=== PATIENT | male | born 1960 | race Native Hawaiian/Other Pacific Islander ===

== ENCOUNTER → 2019-10-04 15:25 | Outpatient (CLI) | payer OTHER, SELFPAY ==
[2019-10-04 17:09] LABS: Prostate Specific Antigen Scrn 1.78 ng/mL (0.1-4.0)
== END ==
PROVIDERS: Family Provider Internal Medicine; PCP Student in an Organized Health Care Education/Training Program; Referring Provider Student in an Organized Health Care Education/Training Program; Visit Provider Student in an Organized Health Care Education/Training Program
DX: Z12.5 Encounter for screening for malignant neoplasm of prostate (principal)
CPT/HCPCS: 36415; G0103

== ENCOUNTER → 2022-01-08 15:14 | Outpatient (CLI) | payer OTHER, SELFPAY ==
[2022-01-08 16:12] LABS: Appearance Urine UA CLEAR; Bilirubin Urine UA NEGATIVE (NEGATIVE); Color Urine UA YELLOW; Glucose Urine UA NEGATIVE (Negative); Ketones Urine UA NEGATIVE (NEGATIVE); Leukocyte Esterase Urine UA NEGATIVE (NEGATIVE); Nitrite Urine UA NEGATIVE (Negative); Occult Blood Urine UA 2+ (Negative); Protein Urine UA NEGATIVE (Negative); Urobilinogen Urine UA 0.2 E.U./dL (0.2)
[2022-01-08 16:21] LABS: Amorphous Sediment Urine 1+; Bacteria Urine None Seen; RBC Urine 1-5/HPF (0-5/HPF); WBC Urine None Seen (0-5/HPF)
[2022-01-08 16:22] LABS: Culture Indicated Urine Cult Not Indicated
[2022-01-08 17:03] LABS: Cholesterol 173 mg/dL (140-199); HDL Cholesterol 44 mg/dL (40-60); LDL Cholesterol Calculated 104 mg/dL (<100); Triglycerides 126 mg/dL (35-150)
[2022-01-08 17:25] LABS: Prostate Specific Antigen Scrn 1.88 ng/mL (0.1-4.0)
[2022-01-09 17:47] LABS: Hep C Virus Ab w/Reflex Quant NEGATIVE s/c (NEGATIVE)
== END ==
PROVIDERS: PCP Student in an Organized Health Care Education/Training Program; Referring Provider Student in an Organized Health Care Education/Training Program; Visit Provider Student in an Organized Health Care Education/Training Program
DX: E78.00 Pure hypercholesterolemia, unspecified (principal); Z12.5 Encounter for screening for malignant neoplasm of prostate; Z11.59 Encounter for screening for other viral diseases; R31.9 Hematuria, unspecified
CPT/HCPCS: 36415; 80061; 81001; 86803; G0103

== ENCOUNTER → 2022-02-26 09:42 | Outpatient (CLI) | payer OTHER, SELFPAY ==
[2022-02-26 10:50] LABS: BUN Creatinine Ratio 16.1 (6-22); Blood Urea Nitrogen 15 mg/dL (9-20); Calcium 8.9 mg/dL (8.4-10.2); Carbon Dioxide 30 mmol/L (22-32); Chloride 104 mmol/L (98-107); Estimated Glomerular Filt Rate > 60 mL/min (>60); Glucose 98 mg/dL (80-110); HEMOLYSIS < 15 (0-50); Sodium 141 mmol/L (137-145)
== END ==
PROVIDERS: PCP Student in an Organized Health Care Education/Training Program; Referring Provider Urology; Visit Provider Urology
DX: R31.21 Asymptomatic microscopic hematuria (principal)
CPT/HCPCS: 36415; 80048

== ENCOUNTER → 2022-05-16 09:05 | Outpatient (CLI) | payer OTHER, SELFPAY ==
--- NOTE | 2022-05-16 09:06 | DI.RAD.S_ITS ---
PROCEDURE: XR FOOT RT MIN 3V INDICATIONS: right ankle sprain TECHNIQUE: 3 views of the foot were acquired. COMPARISON: [facility], CR, XR ANKLE RT MIN 3V, 05/16/2022, 10:19. FINDINGS: Bones: No fractures or dislocations. No suspicious bony lesions. Mild degenerative joint disease in ankle and foot. Bipartite medial and lateral sesamoids. Soft tissues: No tibiotalar joint effusion. Achilles tendon appears normal. IMPRESSION: No acute osseous abnormalities. If clinical symptoms persist or clinical suspicion for pathology is high, a repeat examination in 7-10 days, or advanced imaging such as CT or MRI is suggested for further evaluation. Dictated by: Libia Chinchilla M.D. on 05/16/2022 at 9:46 Approved by: Libia Chinchilla M.D. on 05/16/2022 at 9:47
--- NOTE | 2022-05-16 09:06 | DI.RAD.S_ITS ---
PROCEDURE: XR TIBIA FUBULA RT 2V INDICATIONS: Right ankle sprain TECHNIQUE: 2 views of the tibia and fibula were acquired. COMPARISON: [facility], CR, XR FOOT RT MIN 3V, 05/16/2022, 10:20. [facility], CR, XR ANKLE RT MIN 3V, 05/16/2022, 10:19. FINDINGS: Bones: No fractures or dislocations. No suspicious bony lesions. Soft tissues: No suspicious soft tissue calcifications or masses. IMPRESSION: No acute osseous abnormalities. If clinical symptoms persist or clinical suspicion for pathology is high, a repeat examination in 7-10 days, or advanced imaging such as CT or MRI is suggested for further evaluation. Dictated by: Libia Chinchilla M.D. on 05/16/2022 at 9:44 Approved by: Libia Chinchilla M.D. on 05/16/2022 at 9:45
--- NOTE | 2022-05-16 09:06 | DI.RAD.S_ITS ---
PROCEDURE: XR ANKLE RT MIN 3V INDICATIONS: Right ankle sprain TECHNIQUE: 3 views of the ankle were acquired. COMPARISON: None. FINDINGS: Bones: No fractures or dislocations. Ankle mortise is normally aligned. No suspicious bony lesions. Mild degenerative joint disease. Calcaneal spurring. Soft tissues: Trace tibiotalar joint effusion. Achilles tendon appears normal. IMPRESSION: 1. No acute osseous abnormalities. If clinical symptoms persist or clinical suspicion for pathology is high, a repeat examination in 7-10 days, or advanced imaging such as CT or MRI is suggested for further evaluation. 2. Mild degenerative joint disease. 3. Calcaneal spurring. Dictated by: Libia Chinchilla M.D. on 05/16/2022 at 9:45 Approved by: Libia Chinchilla M.D. on 05/16/2022 at 9:46
== END ==
PROVIDERS: PCP Student in an Organized Health Care Education/Training Program; Referring Provider Physician Assistant; Visit Provider Physician Assistant
DX: S93.401A Sprain of unspecified ligament of right ankle, initial encounter (principal); M19.071 Primary osteoarthritis, right ankle and foot; M77.31 Calcaneal spur, right foot; X58.XXXA Exposure to other specified factors, initial encounter
CPT/HCPCS: 73590; 73610; 73630

== ENCOUNTER → 2023-01-09 08:37 | Outpatient (CLI) | payer OTHER, SELFPAY ==
[2023-01-09 09:06] LABS: Hemoglobin A1C% w Est Avg Glu 5.7 % (4.0-6.0)
[2023-01-09 09:19] LABS: Alanine Aminotransferase 32 IU/L (<50); Albumin 4.3 g/dL (3.5-5.0); Albumin Globulin Ratio 1.5 (1.0-2.8); Alkaline Phosphatase 71 U/L (38-126); Aspartate Aminotransferase 31 IU/L (17-59); Bilirubin Total 0.9 mg/dL (0.2-1.3); Blood Urea Nitrogen 20 mg/dL (9-20); Calcium 9.3 mg/dL (8.4-10.2); Carbon Dioxide 25 mmol/L (22-32); Chloride 105 mmol/L (98-107); Cholesterol 168 mg/dL (140-199); Estimated Glomerular Filt Rate > 60 mL/min (>60); Globulin 2.9 g/dL (1.7-4.1); Glucose 106 mg/dL (80-110); HDL Cholesterol 48 mg/dL (40-60); HEMOLYSIS < 15 (0-50); LDL Cholesterol Calculated 99 mg/dL (<100); Potassium 4.1 mmol/L (3.4-5.1); Sodium 140 mmol/L (137-145); Total Protein 7.2 g/dL (6.3-8.2); Triglycerides 103 mg/dL (35-150)
[2023-01-09 09:46] LABS: Prostate Specific Antigen Scrn 2.25 ng/mL (0.1-4.0)
[2023-01-09 09:52] LABS: TSH w/ Reflex to FT4 1.16 uIU/mL (0.47-4.68)
[2023-01-09 10:05] LABS: Vitamin B12 880 pg/mL (239-931)
== END ==
PROVIDERS: Family Provider Student in an Organized Health Care Education/Training Program; PCP Family Medicine; Referring Provider Family Medicine; Visit Provider Family Medicine
DX: Z12.5 Encounter for screening for malignant neoplasm of prostate (principal); E78.00 Pure hypercholesterolemia, unspecified; I10 Essential (primary) hypertension; R41.3 Other amnesia
CPT/HCPCS: 36415; 80053; 80061; 82607; 83036; 84443; G0103

== ENCOUNTER → 2023-07-27 11:15 | Outpatient (CLI) | payer OTHER, SELFPAY ==
--- NOTE | 2023-07-27 11:24 | DI.RAD.S_ITS ---
PROCEDURE: XR HAND RT MIN 3V INDICATIONS: Rt hand pain. main DIP, 5th finger TECHNIQUE: 3 views of the hand(s) acquired. COMPARISON: None. FINDINGS: Bones: No fractures or dislocations. Carpal bones are normally aligned. No suspicious bony lesions. Severe 5th DIP joint space narrowing. Subchondral sclerosis as well as periarticular osteophytes and subchondral lucencies are present. Similar although much less prominent appearance is present at the remaining DIP joints. Soft tissues: No suspicious soft tissue calcifications. 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 Subchondral lucencies are present likely representing subchondral cysts. However, under appropriate clinical and laboratory circumstances, erosions cannot be excluded. Dictated by: Carmen Magallon M.D. on 07/27/2023 at 20:20 Approved by: Carmen Magallon M.D. on 07/27/2023 at 20:21
[2023-07-27 13:20] LABS: BUN Creatinine Ratio 23.1 (6-22); Blood Urea Nitrogen 21 mg/dL (9-20); Carbon Dioxide 27 mmol/L (22-32); Chloride 106 mmol/L (98-107); Estimated Glomerular Filt Rate > 60 mL/min (>60); Glucose 90 mg/dL (80-110); HEMOLYSIS < 15 (0-50); Potassium 4.3 mmol/L (3.4-5.1); Sodium 138 mmol/L (137-145)
[2023-07-27 13:21] LABS: Hemoglobin A1C% w Est Avg Glu 5.4 % (4.0-6.0)
== END ==
LOC: LAB 11:17
PROVIDERS: Family Provider Student in an Organized Health Care Education/Training Program; PCP Family Medicine; Referring Provider Family Medicine; Visit Provider Family Medicine
DX: M79.643 Pain in unspecified hand (principal); R73.01 Impaired fasting glucose; I10 Essential (primary) hypertension
CPT/HCPCS: 36415; 73130; 80048; 83036

== ENCOUNTER → 2024-01-27 15:30 | Outpatient (CLI) | payer OTHER, SELFPAY ==
[2024-01-27 17:37] LABS: Hematocrit 44.2 % (41-53); Hemoglobin 14.9 g/dL (13.5-17.5); Mean Corpuscular HGB Conc 33.6 % (30-36); Mean Corpuscular Hemoglobin 31.4 PG (26-34); Mean Corpuscular Volume 93.4 fL (80-100); Platelet Count 171 X10^3/uL (150-400); Red Blood Cell Count 4.73 X10^6/uL (4.5-5.9); Red Cell Distribution Width 13.6 % (11.6-14.8); White Blood Cell Count 4.9 X10^3/uL (4.5-11.0)
[2024-01-27 17:57] LABS: Hemoglobin A1C% w Est Avg Glu 5.6 % (4.0-6.0)
[2024-01-27 18:15] LABS: Alanine Aminotransferase 38 IU/L (<50); Albumin Globulin Ratio 1.3 (1.0-2.8); Alkaline Phosphatase 68 U/L (38-126); Aspartate Aminotransferase 40 IU/L (17-59); BUN Creatinine Ratio 26.5 (6-22); Bilirubin Total 0.6 mg/dL (0.2-1.3); Blood Urea Nitrogen 26 mg/dL (9-20); Carbon Dioxide 27 mmol/L (22-32); Chloride 106 mmol/L (98-107); Cholesterol 167 mg/dL (140-199); Estimated Glomerular Filt Rate > 60 mL/min (>60); Globulin 3.1 g/dL (1.7-4.1); Glucose 93 mg/dL (80-110); HDL Cholesterol 47 mg/dL (40-60); HEMOLYSIS < 15 (0-50); LDL Cholesterol Calculated 84 mg/dL (<100); Sodium 137 mmol/L (137-145); Total Protein 7.1 g/dL (6.3-8.2); Triglycerides 178 mg/dL (35-150)
[2024-01-27 18:28] LABS: TSH w/ Reflex to FT4 0.88 uIU/mL (0.47-4.68)
[2024-01-27 18:47] LABS: Vitamin B12 878 pg/mL (239-931)
[2024-01-28 15:10] LABS: HIV 1 & 2 Ab/Ag 4th Gen Combo NEGATIVE (NEGATIVE)
== END ==
PROVIDERS: Family Provider Student in an Organized Health Care Education/Training Program; PCP Family Medicine; Referring Provider Family Medicine; Visit Provider Family Medicine
DX: I10 Essential (primary) hypertension (principal); E78.00 Pure hypercholesterolemia, unspecified; R73.01 Impaired fasting glucose; G25.0 Essential tremor
CPT/HCPCS: 36415; 80053; 80061; 82607; 83036; 84443; 85027; 87389

== ENCOUNTER → 2024-07-15 09:26 | Outpatient (CLI) | payer OTHER, SELFPAY ==
[2024-07-15 10:42] LABS: Hemoglobin A1C% w Est Avg Glu 5.5 % (4.0-6.0)
[2024-07-15 10:48] LABS: BUN Creatinine Ratio 20.2 (6-22); Blood Urea Nitrogen 19 mg/dL (9-20); Carbon Dioxide 28 mmol/L (22-32); Chloride 105 mmol/L (98-107); Estimated Glomerular Filt Rate > 60 mL/min (>60); HEMOLYSIS < 15 (0-50)
[2024-07-15 10:50] LABS: Calcium 9.3 mg/dL (8.4-10.2); Glucose 103 mg/dL (70-99); Potassium 4.5 mmol/L (3.4-5.1); Sodium 139 mmol/L (137-145)
== END ==
LOC: LAB 09:26
PROVIDERS: PCP Family Medicine; Referring Provider Family Medicine; Visit Provider Family Medicine
DX: I10 Essential (primary) hypertension (principal); R73.01 Impaired fasting glucose; R42 Dizziness and giddiness
CPT/HCPCS: 36415; 80048; 83036

== ENCOUNTER 2024-08-20 07:22 | Emergency (ER) | payer OTHER, SELFPAY ==
[2024-08-20] VITALS (7 sets, daily range): BP systolic 131–148; BP diastolic 82–88; PULSE 61–68; RESP 13–20; TEMP 36.5; O2SAT 97–100; BMI 29.7
--- NOTE | 2024-08-20 07:47 | DI.CT.S_ITS ---
PROCEDURE: CT ABDOMEN PELVIS W CON INDICATIONS: Lower abdominal pain, especially left lower abdomen TECHNIQUE: After the administration of intravenous contrast, axial sections acquired from the lung bases to the pubic symphysis. Coronal and sagittal reformats were performed. For radiation dose reduction, the following was used: automated exposure control, adjustment of mA and/or kV according to patient size. COMPARISON: None. FINDINGS: Image quality: Diagnostic. Lower Chest: Mild bibasilar dependent atelectasis. Heart size is normal, no pericardial effusion. ABDOMEN: Liver: No solid mass. Gallbladder: No radiopaque gallstones or wall thickening. Biliary ducts: No biliary dilation. Pancreas: No ductal dilation. Spleen: Size is within normal limits. Adrenal Glands: No adrenal nodules. Kidneys and Ureters: No hydronephrosis. No solid mass. No complex renal cystic lesion which requires follow up. Stomach and Bowel: There is no bowel obstruction. No gastric or small bowel wall thickening. Colonic diverticulosis and [id number]-sdplctco fecal stasis in the colon is seen. Extensive sigmoid diverticulosis. Significant wall thickening and pericolonic fat stranding involving mid sigmoid colon in left lower quadrant is seen. No definite extra luminal air or discrete drainable abscess collection. Peritoneum: No abnormal intraperitoneal fluid. No free air. Ventral Wall: No significant ventral hernia. Abdominal Nodes: No retroperitoneal or mesenteric adenopathy by size criteria. Vessels: Aorta and inferior vena cava are normal in size. PELVIS: Pelvic Organs: Unremarkable. Bladder: No bladder wall thickening, accounting for underdistention. Pelvic Nodes: No enlarged lymph nodes. Miscellaneous: No inguinal hernias are seen. Bones: No aggressive osseous abnormality. IMPRESSION: 1. Finding is suggestive of acute diverticulitis involving mid sigmoid colon in left lower quadrant. No definite perforation or drainable abscess collection. No free fluid or free air. 2. No obstructing renal stones or hydronephrosis. Dictated by: Ayan Ag M.D. on 08/20/2024 at 9:02 Approved by: Ayan Ag M.D. on 08/20/2024 at 9:04
--- NOTE | 2024-08-20 07:53 | ED.ABDPAIN ---
HPI - Abdominal Pain General Chief Complaint: Abdominal Pain Stated Complaint: stomach pain right in the middle Time Seen by Provider: 08/20/24 07:32 Source: patient Mode of arrival: Ambulatory History of Present Illness HPI narrative: 64 years old male with history of hypertension, dyslipidemia came today complaining of low abdominal pain in the mid lower abdomen since 08/16/2024 and the pain got worse yesterday. He rates the pain currently about 8/10 history as sharp in without radiation of the pain. He said yesterday he felt like he needed to go for a bowel movement but nothing came out. He also reported nausea without vomiting. He otherwise denied any chest pain, shortness of breath, fever, urine problem, previous abdominal surgery. He had previous colonoscopy in 2018 show small polyps. Related Data Home Medications ?Medication ?Instructions ?Recorded ?Confirmed cetirizine 10 mg tablet (All Day 10 mg PO DAILY PRN 02/24/22 07/15/24 Allergy (cetirizine)) cholecalciferol (vitamin D3) 25 25 mcg PO DAILY 02/24/22 07/15/24 mcg (1,000 unit) capsule ketotifen fumarate 0.025 % (0.035 drp ophthalmic (eye) 02/24/22 07/15/24 %) eye drops (Wal-Zyr (ketotifen)) multivitamin 1 tab PO DAILY 02/24/22 07/15/24 cyanocobalamin (vitamin B-12) 1,000 mcg PO DAILY internal nerve 07/15/24 07/15/24 1,000 mcg tablet pain fluticasone propionate 50 intranasal During severe alergy 07/15/24 07/15/24 mcg/actuation nasal season spray,suspension Previous Rx's ?Medication ?Instructions ?Recorded atorvastatin 10 mg tablet (Lipitor) 10 mg PO HS #90 tabs 01/19/24 losartan 100 mg tablet 100 mg PO DAILY blood pressure 01/27/24 #100 tabs ciprofloxacin HCl 500 mg tablet 500 mg PO BID #20 tabs 08/20/24 hydrocodone 5 mg-acetaminophen 300 1 tab PO Q4-6H PRN pain #10 tabs 08/20/24 mg tablet hydrocodone 5 mg-acetaminophen 325 1 tab PO Q4-6H PRN pain #10 tabs 08/20/24 mg tablet hydrocodone 5 mg-acetaminophen 325 1 tab PO Q4-6H PRN pain #10 tabs 08/20/24 mg tablet hydrocodone 5 mg-acetaminophen 325 1 tab PO Q4-6H PRN pain #10 tabs 08/20/24 mg tablet metronidazole 500 mg tablet 500 mg PO TID #30 tabs 08/20/24 ondansetron HCl 4 mg tablet 4 mg PO Q6H PRN nausea and 08/20/24 vomiting #20 tabs Allergies Allergy/AdvReac Type Severity Reaction Status Date / Time No Known Drug Allergies Allergy Verified 08/20/24 07:35 Review of Systems Review of Systems ROS Unobtainable: All systems reviewed & are unremarkable except as noted in HPI and below Cardiovascular Cardiovascular: Denies chest pain and Denies dyspnea Respiratory Respiratory: Denies dyspnea Gastrointestinal Gastrointestinal: Reports abdominal pain, Denies diarrhea, Reports nausea and Denies vomiting Genitourinary Genitourinary: Denies hematuria, Denies difficulty urinating and Denies dysuria Patient History Medical History (Updated 08/20/24 @ 09:26 by Milagros Stanley MD) Impaired fasting glucose Benign essential HTN Lower urinary tract symptoms Exposure to secondhand smoke Asymptomatic microscopic hematuria Arthritis Surgical History History of colon surgery Family History Sister Cancer Father Gout Hyperlipidemia Social History (Updated 02/24/22 @ 14:05 by Kelly Mccullough RN) marital status: number of children: 3 occupational status: employed Previous occupational history: pe teacher leisure activities: exercise Smoking Status: Never smoker alcohol intake: current caffeine: Yes Smoking Status: Never smoker Exam Initial Vital Signs Initial Vital Signs: Vital Signs Temperature 97.7 F 08/20/24 07:35 Pulse Rate 68 08/20/24 07:35 Respiratory Rate 16 08/20/24 07:35 Blood Pressure 137/88 08/20/24 07:35 Pulse Oximetry 100 08/20/24 07:35 Oxygen Delivery Method Room Air 08/20/24 07:35 Const General: cooperative, well developed and in distress Orientation: Orientation HENMT HENNE Other: Dry mouth. Resp Effort & Inspection: normal respiratory effort and able to speak in complete sentences Auscultation: clear to auscultation bilaterally and no wheezes Cardio Rate: regular rate Rhythm: regular rhythm Heart Sounds: S1 normal, S2 normal and no murmurs GI Palpation: soft Other: Tenderness on palpation lower abdomen especially on the left lower quadrant without guarding or rebound tenderness. Skin General: no rashes or lesions noted Neuro General: patient alert, patient awake and patient oriented x3 Course Course Course Narrative: The patient was given IV normal saline 500 cc bolus, Zofran, Dilaudid and the pain was a lot better to 0/10 in severity. He has no vomiting in the ED. Orders Ordered: ED Orders 08/20/24 07:45 EKG-12 Lead Stat 08/20/24 07:47 CT abdomen pelvis w con Stat 08/20/24 07:57 Complete Blood Count AUTO DIFF Stat Comprehensive Metabolic Panel Stat Lactate (Lactic Acid) Stat Lipase Stat Troponin I Stat Discontinued Medications Hydromorphone HCl (Hydromorphone 0.5 Mg Inj) 0.5 mg IV NOW ONE Stop: 08/20/24 07:46 Last Admin: 08/20/24 08:03 Dose: 0.5 mg Documented By: GUSTAVO Sodium Chloride (Normal Saline 0.9%) 500 mls @ 1,000 mls/hr IV BOLUS ONE Stop: 08/20/24 08:18 Last Infusion: 08/20/24 08:54 Dose: Infused Documented By: Admin: 08/20/24 08:03 Dose: 1,000 mls/hr Documented By: GUSTAVO Ondansetron HCl (Ondansetron 4 Mg/2 Ml Inj) 4 mg IV NOW ONE Stop: 08/20/24 07:46 Last Admin: 08/20/24 08:03 Dose: 4 mg Documented By: GUSTAVO Vital Signs Vital signs: Vital Signs - 8 hr 08/20/24 07:35 08/20/24 08:17 08/20/24 08:30 Temperature 97.7 F Pulse Rate 68 61 65 Respiratory Rate 16 15 Blood Pressure 137/88 Pulse Oximetry 100 98 97 Oxygen Delivery Method Room Air 08/20/24 08:53 08/20/24 08:53 08/20/24 09:00 Temperature Pulse Rate 67 63 Respiratory Rate 13 20 Blood Pressure 148/88 H Pulse Oximetry 99 98 Oxygen Delivery Method Room Air 08/20/24 09:00 08/20/24 09:30 08/20/24 09:30 Temperature Pulse Rate 65 Respiratory Rate 19 Blood Pressure 137/82 141/86 H Pulse Oximetry 99 Oxygen Delivery Method 08/20/24 10:00 08/20/24 10:00 Temperature Pulse Rate 64 Respiratory Rate 19 Blood Pressure 131/85 Pulse Oximetry 98 Oxygen Delivery Method MDM - Abdominal Pain Differential Diagnosis Differential diagnosis: Likely acute appendicitis, constipation, diverticulitis, gastroenteritis and small bowel obstruction Condition is:: Well Controlled Lab Data 08/20/24 07:57 08/20/24 07:57 Labs: Lab Results 08/20/24 Range/Units 07:57 WBC 10.1 (4.5-11.0) X10^3/uL RBC 4.77 (4.5-5.9) X10^6/uL Hgb 15.2 (13.5-17.5) g/dL Hct 44.7 (41-53) % MCV 93.7 (80-100) fL MCH 31.8 (26-34) PG MCHC 33.9 (30-36) % RDW 13.2 (11.6-14.8) % Plt Count 157 (150-400) X10^3/uL Neut % (Auto) 77.6 H (50-75) % Lymph % (Auto) 11.6 L (25-40) % Archer % (Auto) 6.8 (3-14) % Eos % (Auto) 2.3 (2-4) % Baso % (Auto) 1.7 (0-2) % Neut # (Auto) 7800 H (1682-3672) /uL Lymph # (Auto) 1200 (6938-6036) /uL Archer # (Auto) 700 (0-900) /uL Eos # (Auto) 200 (0-450) /uL Baso # (Auto) 200 H (0-100) /uL Sodium 138 (137-145) mmol/L Potassium 4.7 (3.4-5.1) mmol/L Chloride 106 (98-107) mmol/L Carbon Dioxide 25 (22-32) mmol/L BUN 19 (9-20) mg/dL Creatinine 0.97 (0.66-1.25) mg/dL Estimated GFR > 60 (>60) mL/min BUN/Creatinine Ratio 19.6 (6-22) Glucose 105 H (70-99) mg/dL Lactate 1.3 (0.7-2.1) mmol/L Calcium 9.1 (8.4-10.2) mg/dL Total Bilirubin 1.6 H (0.2-1.3) mg/dL AST 28 (17-59) IU/L ALT 27 (<50) IU/L Alkaline Phosphatase 74 (38-126) U/L Troponin I < 0.012 (0.01-0.034) ng/mL Total Protein 7.4 (6.3-8.2) g/dL Albumin 4.2 (3.5-5.0) g/dL Globulin 3.2 (1.7-4.1) g/dL Albumin/Globulin Ratio 1.3 (1.0-2.8) Lipase 51 (23-300) U/L Imaging Data CT scan - abdomen/pelvis: Radiologist's Impression: PROCEDURE: CT ABDOMEN PELVIS W CON INDICATIONS: Lower abdominal pain, especially left lower abdomen TECHNIQUE: After the administration of intravenous contrast, axial sections acquired from the lung bases to the pubic symphysis. Coronal and sagittal reformats were performed. For radiation dose reduction, the following was used: automated exposure control, adjustment of mA and/or kV according to patient size. COMPARISON: None. FINDINGS: Image quality: Diagnostic. Lower Chest: Mild bibasilar dependent atelectasis. Heart size is normal, no pericardial effusion. ABDOMEN: Liver: No solid mass. Gallbladder: No radiopaque gallstones or wall thickening. Biliary ducts: No biliary dilation. Pancreas: No ductal dilation. Spleen: Size is within normal limits. Adrenal Glands: No adrenal nodules. Kidneys and Ureters: No hydronephrosis. No solid mass. No complex renal cystic lesion which requires follow up. Stomach and Bowel: There is no bowel obstruction. No gastric or small bowel wall thickening. Colonic diverticulosis and [id number] fecal stasis in the colon is seen. Extensive sigmoid diverticulosis. Significant wall thickening and pericolonic fat stranding involving mid sigmoid colon in left lower quadrant is seen. No definite extra luminal air or discrete drainable abscess collection. Peritoneum: No abnormal intraperitoneal fluid. No free air. Ventral Wall: No significant ventral hernia. Abdominal Nodes: No retroperitoneal or mesenteric adenopathy by size criteria. Vessels: Aorta and inferior vena cava are normal in size. PELVIS: Pelvic Organs: Unremarkable. Bladder: No bladder wall thickening, accounting for underdistention. Pelvic Nodes: No enlarged lymph nodes. Miscellaneous: No inguinal hernias are seen. Bones: No aggressive osseous abnormality. IMPRESSION: 1. Finding is suggestive of acute diverticulitis involving mid sigmoid colon in left lower quadrant. No definite perforation or drainable abscess collection. No free fluid or free air. 2. No obstructing renal stones or hydronephrosis. Dictated by: Ayan Ag M.D. on 08/20/2024 at 9:02 Approved by: Ayan Ag M.D. on 08/20/2024 at 9:04 ECG Data Interpretation: EKG show normal sinus rhythm at 65 beats per minute with right bundle branch block. MDM Narrative Medical decision making narrative: 64 years old male came today complaining of lower abdominal pain, constipation and abdominal exam showed tenderness on palpation mid abdomen and left lower quadrant. My differential diagnosis could be acute appendicitis, diverticulitis, intra-abdominal abscess, UTI, bowel obstruction, hernia. His CBC, lipase, troponin, lactic acid were normal. His CMP was normal with mild elevation of bilirubin likely related with dehydration. His pain went down to 0/10 in severity after Dilaudid. He was also given IV Zofran, normal saline. He was sent home with ciprofloxacin, metronidazole, Zofran, Vicodin. Discharge Plan Departure Patient Disposition: Home Clinical Impression: Acute diverticulitis Instructions: Diverticulitis, DI for Diverticulitis Prescriptions: New ciprofloxacin HCl 500 mg tablet 500 mg PO BID Qty: 20 0RF metronidazole 500 mg tablet 500 mg PO TID Qty: 30 0RF ondansetron HCl 4 mg tablet 4 mg PO Q6H PRN (Reason: nausea and vomiting) Qty: 20 0RF hydrocodone-acetaminophen 5-325 mg tablet 1 tab PO Q4-6H PRN (Reason: pain) Qty: 10 0RF hydrocodone-acetaminophen 5-325 mg tablet 1 tab PO Q4-6H PRN (Reason: pain) Qty: 10 0RF hydrocodone-acetaminophen 5-300 mg tablet 1 tab PO Q4-6H PRN (Reason: pain) Qty: 10 0RF hydrocodone-acetaminophen 5-325 mg tablet 1 tab PO Q4-6H PRN (Reason: pain) Qty: 10 0RF No Action atorvastatin [Lipitor] 10 mg tablet 10 mg PO HS Qty: 90 3RF losartan 100 mg tablet 100 mg PO DAILY Qty: 100 3RF fluticasone propionate 50 mcg/actuation spray,suspension intranasal Patient Comments: Used as needed cyanocobalamin (vitamin B-12) 1,000 mcg tablet 1,000 mcg PO DAILY Patient Comments: Relieves stinging needle pain on lower right abdomen cetirizine [All Day Allergy (cetirizine)] 10 mg tablet 10 mg PO DAILY PRN cholecalciferol (vitamin D3) 25 mcg (1,000 unit) capsule 25 mcg PO DAILY ketotifen fumarate [Wal-Zyr (ketotifen)] 0.025 % (0.035 %) drops ophthalmic (eye) multivitamin Tablet 1 tab PO DAILY Referrals: Enrico Uriostegui DO [Primary Care Provider, Family Practice] - 5-7 days Stand Alone Forms: Patient Portal/API
[2024-08-20] MEDS: SODIUM CHLORIDE 0.9% 500 ML 1000 ML IV (08:03)
[2024-08-20] MEDS: ONDANSETRON 4 MG/2 ML INJ IV (08:03)
[2024-08-20] MEDS: HYDROMORPHONE 0.5 MG INJ IV (08:03)
[2024-08-20 08:11] LABS: Add Manual Diff / Slide Review NO; Basophils Absolute Auto 200 /uL (0-100); Basophils Percent Auto 1.7 % (0-2); Eosinophils Absolute Auto 200 /uL (0-450); Eosinophils Percent Auto 2.3 % (2-4); Hematocrit 44.7 % (41-53); Hemoglobin 15.2 g/dL (13.5-17.5); Lymphocytes Absolute Auto 1200 /uL (1100-4500); Lymphocytes Percent Auto 11.6 % (25-40); Mean Corpuscular HGB Conc 33.9 % (30-36); Mean Corpuscular Hemoglobin 31.8 PG (26-34); Mean Corpuscular Volume 93.7 fL (80-100); Monocytes Absolute Auto 700 /uL (0-900); Monocytes Percent Auto 6.8 % (3-14); Neutrophils Absolute Auto 7800 /uL (1500-7000); Neutrophils Percent Auto 77.6 % (50-75); Platelet Count 157 X10^3/uL (150-400); Red Blood Cell Count 4.77 X10^6/uL (4.5-5.9); Red Cell Distribution Width 13.2 % (11.6-14.8); White Blood Cell Count 10.1 X10^3/uL (4.5-11.0)
--- NOTE | 2024-08-20 08:11 | EKG_ITS ---
[address] [address] Test Date: 2024-08-20 Pat Name: Chester Angel Department: [facility] Room: Gender: Male [employer]: : 1960 Requested By: Order Number: [id number] Reading MD: Casey Solis MD Measurements Intervals [place] Rate: 65 P: 44 [place]: 208 QRS: -25 QRSD: 164 T: 16 QT: 456 QTc: 474 Interpretive Statements Normal sinus rhythm Right bundle branch block NO PRIOR TRACING Electronically Signed On 08-22-2024 11:51:47 PDT by Casey Solis MD
[2024-08-20 08:28] LABS: Lactate (Lactic Acid) 1.3 mmol/L (0.7-2.1)
[2024-08-20 08:29] LABS: Alanine Aminotransferase 27 IU/L (<50); Albumin 4.2 g/dL (3.5-5.0); Albumin Globulin Ratio 1.3 (1.0-2.8); Alkaline Phosphatase 74 U/L (38-126); Aspartate Aminotransferase 28 IU/L (17-59); BUN Creatinine Ratio 19.6 (6-22); Bilirubin Total 1.6 mg/dL (0.2-1.3); Blood Urea Nitrogen 19 mg/dL (9-20); Calcium 9.1 mg/dL (8.4-10.2); Carbon Dioxide 25 mmol/L (22-32); Chloride 106 mmol/L (98-107); Estimated Glomerular Filt Rate > 60 mL/min (>60); Globulin 3.2 g/dL (1.7-4.1); Glucose 105 mg/dL (70-99); HEMOLYSIS < 15 (0-50); Lipase 51 U/L (23-300); Potassium 4.7 mmol/L (3.4-5.1); Sodium 138 mmol/L (137-145); Total Protein 7.4 g/dL (6.3-8.2)
[2024-08-20 08:52] LABS: Troponin I < 0.012 ng/mL (0.01-0.034)
== END 2024-08-20 10:27 | disposition home or self-care (01) ==
PROVIDERS: Emergency Provider Emergency Medicine; PCP Family Medicine
DX: K57.92 Diverticulitis of intestine, part unspecified, without perforation or abscess without bleeding (principal)
CPT/HCPCS: 74177; 80053; 83605; 83690; 84484; 85025; 93005; 96361; 96374; 96375; 99283; 99284; J1171; J2405; Q9967

== ENCOUNTER → 2025-01-19 11:32 | Outpatient (CLI) | payer OTHER, SELFPAY ==
[2025-01-19 12:41] LABS: Alanine Aminotransferase 25 IU/L (<50); Albumin 4.4 g/dL (3.5-5.0); Albumin Globulin Ratio 1.5 (1.0-2.8); Alkaline Phosphatase 73 U/L (38-126); Blood Urea Nitrogen 21 mg/dL (9-20); Calcium 9.4 mg/dL (8.4-10.2); Carbon Dioxide 28 mmol/L (22-32); Chloride 104 mmol/L (98-107); Cholesterol 193 mg/dL (140-199); Estimated Glomerular Filt Rate > 60 mL/min (>60); Globulin 2.9 g/dL (1.7-4.1); Glucose 94 mg/dL (70-99); HDL Cholesterol 56 mg/dL (40-60); HEMOLYSIS < 15 (0-50); Hemoglobin A1C% w Est Avg Glu 5.6 % (4.0-6.0); Potassium 4.3 mmol/L (3.4-5.1); Sodium 141 mmol/L (137-145); Total Protein 7.3 g/dL (6.3-8.2); Triglycerides 229 mg/dL (35-150)
== END ==
PROVIDERS: PCP Family Medicine; Referring Provider Family Medicine; Visit Provider Family Medicine
DX: Z12.5 Encounter for screening for malignant neoplasm of prostate (principal); R73.01 Impaired fasting glucose; E78.00 Pure hypercholesterolemia, unspecified; I10 Essential (primary) hypertension
CPT/HCPCS: 36415; 80053; 80061; 83036; G0103